=== PATIENT | male | born 1950 | race American Indian/Alaskan Native ===

== ENCOUNTER 2020-12-25 12:03 | Emergency (ER) | payer SELFPAY ==
[2020-12-25 12:08] VITALS: BP 185/92
--- NOTE | 2020-12-25 12:26 | Emergency Department Report ---
Blank Doc - Documentation Documentation: 70-year-old male acute right flank pain with RLQ abdominal pain. 1- This initial assessment/diagnostic orders/clinical plan/ treatment(s) is/are subject to change based on pt's health status, clinical progression and re- assessment by fellow clinical providers in the ED. Further treatment and workup at subsequent clinical provers discretion. Patient/guardians urged not to elope from ED as their condition may be serious if not clinically assessed and managed. 2-labs 3-UA
[2020-12-25 13:52] LABS: Basophils % (Auto) 0.7 % (0.0-1.8); Eosinophils # (Auto) 0.1 K/mm3 (0.0-0.4); Eosinophils % (Auto) 3.1 % (0.0-4.3); Hematocrit 37.5 % (35.5-45.6); Hemoglobin 12.6 gm/dl (11.8-15.2); Lymphocytes # (Auto) 2.1 K/mm3 (1.2-5.4); Lymphocytes % (Auto) 42.8 % (13.4-35.0); Mean Corpuscular HGB Conc 34 % (32-34); Mean Corpuscular Volume 94 fl (84-94); Monocytes # (Auto) 0.4 K/mm3 (0.0-0.8); Monocytes % (Auto) 8.9 % (0.0-7.3); Platelet Count 336 K/mm3 (140-440); Red Cell Distribution Width 13.8 % (13.2-15.2)
[2020-12-25 14:49] LABS: Calcium 9.2 mg/dL (8.4-10.2)
[2020-12-25 15:12] LABS: Bilirubin,Urine NEG (Negative); Blood,Urine NEG (Negative); Color,Urine Yellow (Yellow); Hyaline Casts,Urine 1 /LPF; Mucus,Urine FEW /HPF; Urobilinogen,Urine < 2.0 mg/dL (<2.0)
[2020-12-25] MEDS ORDERED: HYDROcodone/ACETAMINOPHEN 10-325MG TAB PO ONE (15:17)
[2020-12-25 15:34] LABS: Protein,Urine >500 mg/dL (Negative)
== END 2020-12-25 15:00 | disposition left against medical advice (07) ==
LOC: ED 12:03
DX: M54.9 Dorsalgia, unspecified (principal); Z53.21 Procedure and treatment not carried out due to patient leaving prior to being seen by health care provider
CPT/HCPCS: 36415; 80053; 81001; 83690; 85025

== ENCOUNTER 2021-01-08 16:40 | Emergency (ER) | payer MEDICARE ==
[2021-01-08 16:55] VITALS: BP 182/91
--- NOTE | 2021-01-08 18:53 | Event Note ---
ED Screening Note Date of service: 01/08/21 Time: 18:48 ED Screening Note: 70-year-old -Algerian male presents to the emergency room stating that he is having right flank pain. Patient reports that he was seen at the [facility] on [address] scan and he was told that you look like his appendix was inflamed. Patient states that he got a call from his primary care provider on and states that it was actually a kidney stone. On 12/28/2020 patient was given 10 Percocets from the ER. Patient has not been treated for his shingles on his right side. Patient states Tylenol does not help his pain. This initial assessment/diagnostic orders/clinical plan/treatment(s) is/are subject to change based on patients health status, clinical progression and re- assessment by fellow clinical providers in the ED. Further treatment and workup at subsequent clinical providers discretion. Patient/guardian urged not to elope from the ED as their condition may be serious if not clinically assessed and managed. Initial orders include:
[2021-01-08] MEDS ORDERED: SODIUM CHLORIDE 0.9% 1000 ML 1,000 ML IV ONE (19:39)
[2021-01-08] MEDS ORDERED: MORPHINE 4 MG/1 ML INJ IV ONE (19:39)
[2021-01-08] MEDS ORDERED: ONDANSETRON 4 MG/2 ML INJ IV ONE (19:39)
--- NOTE | 2021-01-08 19:40 | Cat Scan Report ---
CT abdomen pelvis wo con INDICATION / CLINICAL INFORMATION: Right flank pain.. TECHNIQUE: All CT scans at this location are performed using CT dose reduction for ALARA by means of automated e xposure control. COMPARISON: None available. FINDINGS: No free fluid is seen in the abdomen. The gallbladder has been surgically removed. Multiple stones ar e seen in the right kidney with at least 1 stone on the left. No hydronephrosis is identified. The sp suzie, pancreas and adrenal glands are normal. Atherosclerotic changes present without evidence of an aneurysm. No enlarged mesenteric or retroperitoneal lymph nodes are seen. In the pelvis, no free fluid is seen. Moderate fecal material is seen in the colon. No enlarged lymph nodes are identified. The bladder and the appendix are normal. No significant skeletal abnormality i s identified. IMPRESSION: 1. Multiple stones in the right kidney with at least one stone on the left. No evidence of hydronephr osis or hydroureter. 2. Cholecystectomy 3. Moderate fecal material in the colon 4. Atherosclerotic change without evidence of an aneurysm Signer Name: Alex Atkinson MD FACR Signed: 01/08/2021 7:36 PM Workstation Name: [id number]
[2021-01-08 19:51] LABS: Bilirubin,Urine NEG (Negative); Blood,Urine SM (Negative); Color,Urine Yellow (Yellow); Mucus,Urine FEW /HPF; Urobilinogen,Urine < 2.0 mg/dL (<2.0)
[2021-01-08 20:28] LABS: Basophils % (Auto) 0.4 % (0.0-1.8); Eosinophils # (Auto) 0.1 K/mm3 (0.0-0.4); Eosinophils % (Auto) 1.2 % (0.0-4.3); Hematocrit 38.3 % (35.5-45.6); Hemoglobin 12.7 gm/dl (11.8-15.2); Lymphocytes # (Auto) 2.3 K/mm3 (1.2-5.4); Lymphocytes % (Auto) 33.6 % (13.4-35.0); Mean Corpuscular HGB Conc 33 % (32-34); Mean Corpuscular Volume 95 fl (84-94); Monocytes # (Auto) 0.6 K/mm3 (0.0-0.8); Monocytes % (Auto) 8.6 % (0.0-7.3); Platelet Count 424 K/mm3 (140-440); Red Blood Count 4.03 M/mm3 (3.65-5.03); Red Cell Distribution Width 13.5 % (13.2-15.2)
[2021-01-08 20:45] LABS: Alanine Aminotransferase 15 units/L (7-56); Albumin 4.2 g/dL (3.9-5); BUN/Creatinine Ratio 19; Blood Urea Nitrogen 27 mg/dL (9-20); Calcium 9.6 mg/dL (8.4-10.2); Hemolysis Index 113
--- NOTE | 2021-01-08 21:21 | Emergency Department Report ---
ED General Adult HPI - General Chief complaint: Abdominal Pain Stated complaint: KIDNEY STONE/SHINGLES PUI?: No Source: patient Mode of arrival: Ambulatory Limitations: No Limitations - History of Present Illness Initial comments: Patient is a 70-year-old -Syrian male with a history of pld-kenqlcj-gyldacdcn diabetes who presents to the ED with complaint of acute onset persistent severe right flank pain for the last 1 week. Patient states that he was diagnosed with shingles outbreak about a week ago and was given pain medications to take at home and that these medications have not helped his pain due to shingles. Patient states that the shingles rash on his right flank has been persistent, and worsening in the last 3 days. Patient states that his primary physician diagnosed him with kidney stones with no imaging performed. Patient states that he was not given any antiviral medications for his shingles outbreak. Patient denies fever, chills, nausea, vomiting, diarrhea, dizziness, syncope, chest pain, shortness of breath, hematuria, testicular pain, traumatic injury or heavy lifting, diarrhea, change in vision, numbness and tingling or weakness of lower extremities bilaterally. MD Complaint: right flank pain, shingles outbreak on right flank -: Sudden, week(s) (1) Location: abdomen (right flank) Radiation: flank (right flank) Severity scale (0 -10): 8 Quality: burning, aching, sharp Consistency: constant Improves with: none Worsens with: none Associated Symptoms: denies other symptoms, loss of appetite, rash (Erythematous maculopapular vesicular ulcerated lesions on the right flank in a dermatomal pattern). denies: confusion, chest pain, cough, diaphoresis, fever/chills, headaches, malaise, nausea/vomiting, seizure, shortness of breath, syncope, weakness Treatments Prior to Arrival: NSAID - Related Data Previous Rx's Medication Instructions Recorded Last Taken Type Gabapentin 300 mg PO Q12H PRN #30 capsule 01/08/21 Unknown Rx Naproxen 500 mg PO Q12H PRN #30 tablet 01/08/21 Unknown Rx Valacyclovir HCl [Valtrex] 1,000 mg PO Q8H #30 tablet 01/08/21 Unknown Rx traMADoL [Ultram] 50 mg PO Q6HR PRN #12 tablet 01/08/21 Unknown Rx Allergies Allergy/AdvReac Type Severity Reaction Status Date / Time No Known Allergies Allergy Verified 01/08/21 16:49 ED Review of Systems ROS: Stated complaint: KIDNEY STONE/SHINGLES Other details as noted in HPI Constitutional: denies: chills, fever Eyes: denies: eye pain, eye discharge, vision change ENT: denies: ear pain, throat pain Respiratory: denies: cough, shortness of breath, wheezing Cardiovascular: denies: chest pain, palpitations Endocrine: no symptoms reported Gastrointestinal: abdominal pain (right flank). denies: nausea, vomiting, diarrhea Genitourinary: denies: urgency, dysuria Musculoskeletal: denies: back pain, joint swelling, arthralgia Skin: rash (Erythematous severely painful maculopapular ulcerated vesicular lesions on the right flank in a dermatomal pattern), change in color. denies: l esions Neurological: denies: headache, weakness, paresthesias Psychiatric: denies: anxiety, depression Hematological/Lymphatic: denies: easy bleeding, easy bruising ED Past Medical Hx - Past Medical History Hx Diabetes: Yes - Surgical History Past Surgical History?: No - Social History Smoking Status: Never Smoker Substance Use Type: None - Medications Home Medications: Home Medications Medication Instructions Recorded Confirmed Last Taken Type Gabapentin 300 mg PO Q12H PRN #30 capsule 01/08/21 Unknown Rx Naproxen 500 mg PO Q12H PRN #30 tablet 01/08/21 Unknown Rx Valacyclovir HCl [Valtrex] 1,000 mg PO Q8H #30 tablet 01/08/21 Unknown Rx traMADoL [Ultram] 50 mg PO Q6HR PRN #12 tablet 01/08/21 Unknown Rx ED Physical Exam - General Limitations: No Limitations General appearance: alert, in no apparent distress - Head Head exam: Present: atraumatic, normocephalic, normal inspection - Eye Eye exam: Present: normal appearance, PERRL, EOMI Pupils: Present: normal accommodation - ENT ENT exam: Present: normal exam, normal orophraynx, mucous membranes moist, TM's normal bilaterally, normal external ear exam - Neck Neck exam: Present: normal inspection, full ROM - Respiratory Respiratory exam: Present: normal lung sounds bilaterally. Absent: respiratory distress, wheezes, rales, rhonchi, chest wall tenderness, accessory muscle use, decreased breath sounds, prolonged expiratory - Cardiovascular Cardiovascular Exam: Present: regular rate, normal rhythm, normal heart sounds. Absent: systolic murmur, diastolic murmur, rubs, gallop - GI/Abdominal GI/Abdominal exam: Present: soft, tenderness (Palpable severe right flank tenderness due to erythematous maculopapular ulcerated vesicular dermatomal lesions), normal bowel sounds. Absent: guarding, rebound, rigid, hyperactive bowel sounds, hypoactive bowel sounds, organomegaly - Extremities Exam Extremities exam: Present: normal inspection, full ROM, normal capillary refill. Absent: tenderness, pedal edema, joint swelling, calf tenderness - Back Exam Back exam: Present: normal inspection, full ROM, tenderness (Palpable severe right flank tenderness due to erythematous maculopapular ulcerated vesicular dermatomal lesions), muscle spasm, paraspinal tenderness. Absent: vertebral tenderness - Neurological Exam Neurological exam: Present: alert, oriented X3, CN II-XII intact, normal gait, reflexes normal - Psychiatric Psychiatric exam: Present: normal affect, normal mood, anxious - Skin Skin exam: Present: warm, dry, intact, rash (Erythematous maculopapular ulcerated vesicular dermatomal lesions on right flank with severe tenderness), erythema, vesicles ED Course Vital Signs 01/08/21 16:54 Temperature 98.3 F Pulse Rate 68 Respiratory 18 Rate Blood Pressure 182/91 O2 Sat by Pulse 99 Oximetry ED Medical Decision Making - Lab Data Result diagrams: 01/08/21 20:09 01/08/21 20:09 - Radiology Data Radiology results: report reviewed, [place] [id number] Cat Scan Report Signed Patient: QUETA SCHUSTER MR#: [id number] : 1950 Acct:[id number] Age/Sex: 70 / M ADM Date: 01/08/21 Loc: ED Attending Dr: Ordering Physician: ELLIS ALANIS Date of Service: 01/08/21 Procedure(s): CT abdomen pelvis wo con Accession Number(s): [id number] cc: ELLIS ALANIS CT abdomen pelvis wo con INDICATION / CLINICAL INFORMATION: Right flank pain.. TECHNIQUE: All CT scans at this location are performed using CT dose reduction for ALARA by means of automated exposure control. COMPARISON: None available. FINDINGS: No free fluid is seen in the abdomen. The gallbladder has been surgically removed. Multiple stones are seen in the right kidney with at least 1 stone on the left. No hydronephrosis is identified. The spleen, pancreas and adrenal glands are normal. Atherosclerotic changes present without evidence of an aneurysm. No enlarged mesenteric or retroperitoneal lymph nodes are seen. In the pelvis, no free fluid is seen. Moderate fecal material is seen in the colon. No enlarged lymph nodes are identified. The bladder and the appendix are normal. No significant skeletal abnormality is identified. IMPRESSION: 1. Multiple stones in the right kidney with at least one stone on the left. No evidence of hydronephrosis or hydroureter. 2. Cholecystectomy 3. Moderate fecal material in the colon 4. Atherosclerotic change without evidence of an aneurysm Signer Name: Alex Atkinson MD FACR Signed: 01/08/2021 7:36 PM Workstation Name: [id number] Transcribed By: [place] Dictated By: Alex Atkinson MD Electronically Authenticated By: Alex Atkinson MD Signed Date/Time: 01/08/211935 DD/ 33 TD/TT: - Medical Decision Making This is a 70-year-old -Syrian male with a history of tmr-asuuqof-jjzontvse diabetes who presents to the ED with complaint of acute onset persistent severe right flank pain for the last 1 week. Patient states that he was diagnosed with shingles outbreak about a week ago and was given pain medications to take at home and that these medications have not helped his pain due to shingles. Patient states that the shingles rash on his right flank has been persistent, and worsening in the last 3 days. Patient states that his primary physician diagnosed him with kidney stones with no imaging performed. Patient states that he was not given any antiviral medications for his shingles outbreak. In the ED, patient is alert and oriented x3 and is not in any distress. Lab test results were reviewed and showed BUN of 27, creatinine 1.4, mild acute hyponatremia 134 mmol/L and urinalysis is unremarkable with no microscopic blood. Patient was treated for pain in the ED and also given normal saline 1 L IV bolus x1. Abdomen pelvis CT scan without contrast showed multiple stones in the right kidney with at least one stone on the left. No evidence of hydronephrosis or hydroureter. It also showed that the patient is s/p cholecystectomy. The report also showed that the patient had moderate fecal material in the colon and atherosclerotic change without evidence of an aneurysm. Based on the history and physical exam findings of erythematous maculopapular ulcerated vesicular dermatomal lesions on the right flank consistent with shingles outbreak, the patient symptoms are likely due to the shingles outbreak causing the pain since the kidney stones identified on abdomen pelvis CT scan without contrast with being the kidneys and are unlikely to be the cause of the patient's pain. On reevaluation, patient's pain is well controlled medications. Patient was therefore discharged home on pain medications and also given a prescription of Valtrex 1 g p.o. for the shingles outbreak. Patient was advised to follow-up with his primary care physician in 7 to 10 days for reevaluation. Patient advised return to the ED immediately if symptoms get worse. - Differential Diagnosis kidney stones; shingles outbreak; Muscle spasm; UTI; muscle strain Critical care attestation.: If time is entered above; I have spent that time in minutes in the direct care of this critically ill patient, excluding procedure time. ED Disposition Clinical Impression: Acute abdominal pain in right flank, Dehydration, Kidney stones Shingles outbreak Qualifiers: Herpes zoster complications: without complications Qualified Code(s): B02.9 - Zoster without complications Disposition: DC-01 TO HOME OR SELFCARE Is pt being admited?: No Does the pt Need Aspirin: No Condition: Stable Instructions: Shingles, [id number], Flank Pain, Adult, [id number], Dehydration, Elderly, [id number] Additional Instructions: Lab test results were reviewed and showed significant dehydration, and the abdomen pelvis CT scan without contrast showed kidney stones within the right kidney and some in the left kidney. These kidney stones are unlikely to be the source of your pain as they are still within the kidney itself. Your symptoms are likely due to worsening shingles outbreak on the right flank. Therefore take medications with food, drink plenty of fluids and follow-up with your primary care physician in 5 to 7 days for reevaluation. Return to the ED immediately if symptoms get worse. Prescriptions: Gabapentin 300 mg PO Q12H PRN #30 capsule PRN Reason: Neuropathy Naproxen 500 mg PO Q12H PRN #30 tablet PRN Reason: Pain , Severe (7-10) traMADoL [Ultram] 50 mg PO Q6HR PRN #12 tablet PRN Reason: Pain Valacyclovir HCl [Valtrex] 1,000 mg PO Q8H #30 tablet Referrals: [facility] [Provider Group] - 7-10 days Time of Disposition: 21:22 Print Language: [place] ISLAND[place]
== END 2021-01-08 22:35 | disposition home or self-care (01) ==
LOC: ED 16:40
DX: N20.0 Calculus of kidney (principal); E86.0 Dehydration; B02.8 Zoster with other complications; E11.9 Type 2 diabetes mellitus without complications; Z79.899 Other long term (current) drug therapy
CPT/HCPCS: 36415; 74176; 80053; 81001; 83690; 85025; 96361; 96374; 96375; 99284; J2270; J2405; J7030

== ENCOUNTER 2021-10-24 10:28 | Outpatient (CLI) | payer OTHER ==
--- NOTE | 2021-10-24 11:50 | Cat Scan Report ---
CT HEAD WITHOUT CONTRAST INDICATION / CLINICAL INFORMATION: SUDDEN SYNCOPE UNCONTROLLED HTN. TECHNIQUE: Axial imaging performed from the skull apex through the skull base without the use of cont rast. Sagittal and coronal reformatted images. All CT scans at this location are performed using CT dose reduction for ALARA by means of automated exposure control. COMPARISON: None available. FINDINGS: CEREBRAL PARENCHYMA: Mild hypoattenuation is identified in the periventricular white matter consisten t with chronic small vessel disease. The remaining brain parenchyma demonstrates normal attenuation. No acute or chronic territorial infarct. HEMORRHAGE: None. EXTRA-AXIAL SPACES: Normal in size and morphology for the patient's age. VENTRICULAR SYSTEM: Normal in size and morphology for the patient's age. MIDLINE SHIFT OR HERNIATION: None. CEREBELLUM / BRAINSTEM: No significant abnormality. CALVARIUM: No significant abnormality. ORBITS: Normal as visualized. PARANASAL SINUSES / MASTOID AIR CELLS: Normal as visualized. SOFT TISSUES of HEAD: No significant abnormality. ADDITIONAL FINDINGS: None. IMPRESSION: No acute intracranial abnormality. Mild nonspecific chronic white matter changes which are likely kayley ropriate for this person's age. Signer Name: John Early Jr, MD Signed: 10/24/2021 11:46 AM Workstation Name: [id number]
== END 2021-10-24 10:29 | disposition home or self-care (01) ==
LOC: CT 10:28
DX: R55 Syncope and collapse (principal)
CPT/HCPCS: 70450